=== PATIENT | female | born 1965 | race Two or more races ===

== ENCOUNTER 2020-02-11 22:03 | Emergency (ER) | payer BC, MEDICAID ==
[~2020-02-11] VITALS: Ht 149.9 cm; Wt 58.0 kg
[2020-02-12] MEDS ORDERED: MORPHINE SULFATE 4 MG/ML CPJ (NOT FOR IM USE) IV STA (03:00)
[2020-02-12] MEDS ORDERED: ONDANSETRON HCL 4MG/2ML INJ IV STA (03:00)
[2020-02-12] MEDS ORDERED: SODIUM CHLORIDE 0.9% 1,000 ML IV ONE (03:00)
[2020-02-12 03:23] LABS: BASOPHILS % 0.2 % (0.0-2.0); EOSINOPHILS % 0.2 % (0.0-5.0); HEMATOCRIT. 37.1 % (36.0-48.0); HEMOGLOBIN. 12.5 g/dL (12.0-16.0); LYMPHOCYTES % 14.5 % (20.0-50.0); MEAN CORPUSCULAR HEMOGLOBIN 29.9 pg (28.0-32.0); MEAN CORPUSCULAR VOLUME 88.7 fL (81.0-99.0); MONOCYTES % 3.2 % (2.0-8.0); NEUTROPHILS % 81.9 % (40.0-76.0); PLATELET 248 x1000/uL (130-400); RED BLOOD CELL COUNT 4.18 mill/uL (4.2-5.4)
[2020-02-12 03:26] LABS: CHLORIDE 106 mEq/L (98-107)
[2020-02-12 05:00] VITALS: BP 103/55
== END 2020-02-12 05:50 | disposition home or self-care (01) ==
LOC: ER 22:03
DX: K80.80 Other cholelithiasis without obstruction (principal)
CPT/HCPCS: 36415; 71045; 76705; 80053; 83690; 85025; 93005; 96374; 96375; 99285; J2270; J2405; J7030